=== PATIENT | female | born 1985 | race Caucasian/White ===

== ENCOUNTER 2018-02-11 15:39 | Emergency (ER) | payer SELFPAY ==
[~2018-02-11] VITALS: Ht 162.6 cm; Wt 71.7 kg
--- NOTE | 2018-02-11 16:53 | Diagnostic Imaging Report ---
Exam: Head CT without contrast History: Migraine, headache, photophobia, history of aneurysm. Comparison studies: None Technique: Axial images were obtained from the skull base to the vertex. Coronal and sagittal images reconstructed from the axial data. Intravenous contrast: None Findings: Artifact from aneurysm clip and endovascular hardware limit evaluation of the suprasellar and basilar cisterns and adjacent parenchyma. Scalp and bones: Surgical changes of previous right fronto-pterional craniotomy Brain sulci: Appropriate for age. Ventricles: Normal in size and configuration. No hydrocephalus. Extra-axial spaces: No masses, no fluid collection. Parenchyma: No mass, acute hemorrhage or acute cortical vascular insults. Chronic insult with encephalomalacia in the right anterior temporal lobe. Small insult in the right middle cerebellum. Sellar/suprasellar region: No abnormalities. Craniocervical junction: Patent foramen magnum. No Chiari one malformation. Additional findings: Single aneurysm clip in the right parasellar region with bilateral flow diversion devices or stents within the bilateral cavernous and paraophthalmic ICA segments. Additionally there is a stent within the basilar artery and likely within the right P1 [employer] segment with endovascular coil mass presumably within a coiled aneurysm at the basilar tip. Cannot further evaluate for residual or recurrent aneurysm by noncontrast head CT. IMPRESSION: 1. No acute intracranial abnormalities. 2. 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 3. Status post endovascular intervention with bilateral ICA flow diversion device is or stents in place as well as endovascular changes related to stent-assisted basilar tip aneurysm embolization. 4. Right anterior temporal lobe encephalomalacia beneath the craniotomy and small chronic right cerebellar insult. Note, cannot further evaluate for potential residual or recurrent aneurysm on this noncontrast exam. Signed by: Dr. Brandon Mancera M.D. on 02/11/2018 4:50 PM
[2018-02-11] MEDS ORDERED: ONDANSETRON HCL INJ 2 MG/ML VIAL IV STA (17:55)
[2018-02-11] MEDS ORDERED: MORPHINE SULFATE 2 MG/ML SYR IV STA (17:55)
[2018-02-11] MEDS ORDERED: SODIUM CHLORIDE 0.9% 1000ML 1,000 ML IV SCH ×2 (18:00→20:45)
[2018-02-11 18:17] LABS: BASOPHILS % 0.3 % (0.0-1.0); EOSINOPHILS % 0.1 % (0.0-6.0); HEMATOCRIT 44.8 % (34.2-44.1); HEMOGLOBIN 14.9 g/dL (12.0-16.0); LYMPHOCYTES % 22.7 % (18.0-39.1); MEAN CORPUSCULAR HEMOGLOBIN 35.1 pg (28-32); MEAN CORPUSCULAR HGB CONC 33.3 g/dL (31-35); MEAN CORPUSCULAR VOLUME 105.7 fL (81-99); MONOCYTES # (AUTO) 1.1 (0.2-0.8); NEUTROPHILS # (AUTO) 9.1 (2.1-6.9); NEUTROPHILS % 68.5 % (38.7-80.0); PLATELET COUNT 309 x10e3/uL (140-360); RED BLOOD COUNT 4.24 x10e6/uL (3.6-5.1)
[2018-02-11] MEDS ORDERED: KETOROLAC TROMETHAMINE 30 MG/ML VIAL IV STA (18:28)
[2018-02-11] MEDS ORDERED: DIPHENHYDRAMINE HCL INJ 50 MG/ML VIAL IV ONE (18:30)
[2018-02-11] MEDS ORDERED: DEXAMETHASONE SOD PHOS 10 MG/1 ML VIAL IV ONE (18:30)
[2018-02-11] MEDS ORDERED: METOCLOPRAMIDE HCL 10 MG/2ML VIAL IV ONE (18:30)
[2018-02-11 18:33] LABS: ANION GAP 25.6 mmol/L (8-16); BLOOD UREA NITROGEN 11 mg/dL (7-26); BUN/CREATININE RATIO 14 (6-25); CALCIUM 9.6 mg/dL (8.4-10.2); CARBON DIOXIDE 12 mmol/L (22-29); CHLORIDE 104 mmol/L (98-107); EST GLOMERULAR FILTRATION RATE > 60 ML/MIN (60-); GLUCOSE 62 mg/dL (74-118); POTASSIUM 3.6 mmol/L (3.5-5.1); SODIUM 138 mmol/L (136-145)
[2018-02-11 18:40] LABS: HCG,QUANTITATIVE < 1.20 mIU/mL (0-10)
[2018-02-11] MEDS ORDERED: FENTANYL CITRATE/PF 100MCG/2 ML INJ IV ONE (20:45)
[2018-02-11 21:00] LABS: CLARITY,URINE CLEAR (CLEAR); COLOR,URINE YELLOW (YELLOW); KETONES,URINE 3+ (NEGATIVE); LEUKOCYTE ESTERASE ,URINE NEGATIVE (NEGATIVE); NITRITE,URINE NEGATIVE (NEGATIVE); PROTEIN,URINE DIPSTICK TRACE (NEGATIVE); URINE UROBILINOGEN 0.2 mg/dL (0.2 - 1)
[2018-02-11 21:01] LABS: BILIRUBIN,URINE 1+ (NEGATIVE)
[2018-02-11 21:19] LABS: BACTERIA,URINE MODERATE /HPF; EPITHELIAL CELLS,URINE MANY /LPF; TRANSITIONAL EPI CELLS,URINE MODERATE
[2018-02-11] MEDS ORDERED: PROMETHAZINE HCL 25 MG TAB PO ONE (21:36)
[2018-02-11] MEDS ORDERED: PROMETHAZINE 12.5MG/ NACL 0.9% 12.5 MG/50 ML BAG IV ONE (21:45)
[2018-02-11] MEDS ORDERED: LABETALOL HCL 5 MG/ML 20ML VIAL IV STA (22:45)
[2018-02-11] MEDS ORDERED: HYDROCODONE/APAP 10MG-325MG TAB PO ONE (23:15)
[2018-02-11 23:53] VITALS: BP 139/92
== END 2018-02-12 00:06 | disposition home or self-care (01) ==
LOC: ER 15:39
DX: G44.221 Chronic tension-type headache, intractable (principal); G43.109 Migraine with aura, not intractable, without status migrainosus; I10 Essential (primary) hypertension
CPT/HCPCS: 36415; 70450; 80048; 81001; 84702; 85025; 99284; J1100; J1200; J1885; J2270; J2405; J2765; J3490; J7030

== ENCOUNTER 2021-02-11 13:04 | Emergency (ER) | payer SELFPAY ==
[~2021-02-11] VITALS: Ht 162.6 cm; Wt 71.7 kg
[2021-02-11] MEDS ORDERED: KETOROLAC TROMETHAMINE 60 MG/2 ML VIAL IM ONE (15:45)
[2021-02-11] MEDS ORDERED: KETOROLAC TROMETHAMINE 30 MG/ML VIAL ONE (15:58)
== END 2021-02-11 16:48 | disposition home or self-care (01) ==
LOC: ER 15:10
DX: M25.512 Pain in left shoulder (principal); I10 Essential (primary) hypertension
CPT/HCPCS: 99282; J1885

== ENCOUNTER 2024-01-25 14:51 | Emergency (ER) | payer SELFPAY ==
[~2024-01-25] VITALS: Ht 162.6 cm; Wt 71.7 kg
[2024-01-25] MEDS: ONDANSETRON HCL INJ 2MG/ML 2ML 2 MG/ML VIAL IV STA ×2 (15:34→17:26)
[2024-01-25] MEDS: SODIUM CHLORIDE 0.9% 1000ML 1,000 ML IV ONE (15:34)
[2024-01-25] MEDS: HYDROCODONE/APAP 5MG-325MG TAB PO ONE ×2 (15:35→17:26)
[2024-01-25 17:06] VITALS: O2SAT 98
[2024-01-25] MEDS ORDERED: ONDANSETRON ODT4 MG PO (17:48)
[2024-01-25 18:01] VITALS: PULSE 95; RESP 18; TEMP 98.2
== END 2024-01-25 18:01 | disposition home or self-care (01) ==
LOC: FSED 15:02
DX: K08.89 Other specified disorders of teeth and supporting structures (principal); R68.84 Jaw pain; E86.1 Hypovolemia; E86.0 Dehydration; I10 Essential (primary) hypertension; F32.A Depression, unspecified; Z87.442 Personal history of urinary calculi
CPT/HCPCS: 70486; 80048; 81025; 85025; 96374; 96376; 99284; J0696; J2405; J7030